=== PATIENT | female | born 2005 | race African-American/Black ===

== ENCOUNTER 2025-03-25 07:51 | Emergency (ER) | payer OTHER ==
[~2025-03-25] VITALS: Ht 165.1 cm; Wt 63.6 kg
[2025-03-25 07:54] VITALS: BP 123/88; PULSE 94; RESP 18; TEMP 98.5; O2SAT 99
[2025-03-25] MEDS ORDERED: AMOX500C2 PO (08:17)
[2025-03-25] MEDS ORDERED: IBUP-1554 PO (08:17)
[2025-03-25] MEDS ORDERED: HYDR-4062 PO (08:17)
[2025-03-25] MEDS: HYDROCODONE/ACETAMINOPHEN 5-325 MG TABLET PO ONE (08:22)
[2025-03-25] MEDS: CEPHALEXIN MONOHYDRATE 500 MG CAPSULE PO ONE (08:22)
[2025-03-25] MEDS: IBUPROFEN 600 MG TABLET PO ONE (08:22)
== END 2025-03-25 08:30 | disposition home or self-care (01) ==
LOC: EMS 07:54
DX: K04.7 Periapical abscess without sinus (principal); K08.89 Other specified disorders of teeth and supporting structures; Z79.899 Other long term (current) drug therapy
CPT/HCPCS: 99284; Z7502; Z7610